=== PATIENT | male | born 1950 | race Caucasian/White ===

== ENCOUNTER → 2017-03-30 | Outpatient (REF) | payer BC | LOC: M LAB REF 12:15 | DX: J02.9 Acute pharyngitis, unspecified (principal) | CPT/HCPCS: 87081 ==

== ENCOUNTER → 2019-05-13 | Outpatient (CLI) | payer BC ==
--- NOTE | 2019-05-14 17:02 | HOLTMON ---
[facility] Test Date: 2019-05-13 Pat Name: SARITHA RALPH Department: Room: - Gender: Male Voice Over Announcer: Gladis Holden/JESUS ALBERTO MUNSON : 1950 Requested By: SONYA Esteban [facility] Order Number: [id number] Reading MD: Edda Negron Interpretive Statements PATIENT STATES THAT "THESE FEELINGS OF PALPS LAST ANYWHERE FROM 30 SECS. TO TWO MINUTES. sINUS MECHANISM THROUGHOUT. MAX HR 97 MIN HR 52 FEW PACS IN SINGLETS AND IN RUNS OF BIGEMINY ONE RUN REPORTED SYMPTOMATIC RARE ASYMTOMATIC PVC LAST STRIP WITH 0.5-1MM ST DEP Electronically Signed on 05-14-2019 17:02:15 EST by Edda Negron
== END ==
LOC: M EKG 08:12
PROVIDERS: ATTEND Family Medicine
DX: R00.2 Palpitations (principal)

== ENCOUNTER → 2023-12-29 | Outpatient (CLI) | payer MEDICARE | LOC: M WHC 14:03 | PROVIDERS: ATTEND Family Medicine | DX: M79.661 Pain in right lower leg (principal) ==